=== PATIENT | male | born 1950 | race Caucasian/White ===

== ENCOUNTER 2019-03-18 14:01 | Outpatient (CLI) | payer MEDICARE ==
[~2019-03-18 14:01] MED LIST: ASPI-496 PO; CHOL5000 PO; FENO200C PO; FISH1CAP PO; GLIP5TAB10 PO; LISI-170 PO; MULT1TAB60 PO; TAMS0.4C2 PO
[2019-03-18] MEDS ORDERED: PRAV20TA2 PO (15:19)
== END 2019-03-18 23:59 | disposition home or self-care (01) ==
LOC: STAR 14:01
PROVIDERS: ATTEND Orthopaedic Surgery
DX: Z02.9 Encounter for administrative examinations, unspecified (principal)